=== PATIENT | female | born 1980 | race African-American/Black ===

== ENCOUNTER 2017-03-22 11:25 | Inpatient (IN) | payer OTHER ==
[2017-03-20 13:02] VITALS: BMI 35.7
--- NOTE | 2017-03-22 14:44 | HP ---
Admitting History and Physical - Admission Chief Complaint: Morbid Obesity History Source: Patient, Medical Record Limitations to Obtaining History: No Limitations - Past Medical History Cardiovascular: Yes: HTN ...LMP: 03/12/17 - Past Surgical History Past Surgical History: Yes: Appendectomy, Cholecystectomy, - Smoking History Smoking history: Never smoked Have you smoked in the past 12 months: No - Alcohol/Substance Use Hx Alcohol Use: Yes (social,rare) Home Medications - Allergies Allergies/Adverse Reactions: Allergies Allergy/AdvReac Type Severity Reaction Status Date / Time Penicillins Allergy Intermediate Rash Verified 03/22/17 12:59 - Home Medications Home Medications: Ambulatory Orders Amlodipine Besylate [Norvasc -] 10 mg PO DAILY 03/20/17 Family Disease History - Family Disease History Family History: Unremarkable Review of Systems - Review of Systems Constitutional: denies: Chills, Fever HENT: reports: No Symptoms Neck: reports: No Symptoms Cardiovascular: reports: No Symptoms. denies: Chest Pain Respiratory: denies: Cough Gastrointestinal: denies: Abdominal Pain Neurological: denies: Change in LOC Pain Intensity: 0 Physical Examination Vital Signs: Vital Signs Temperature 98.2 F 03/22/17 12:47 Pulse Rate 82 03/22/17 12:47 Respiratory Rate 18 03/22/17 12:47 Blood Pressure 137/85 03/22/17 12:47 O2 Sat by Pulse Oximetry (%) 98 03/22/17 12:48 Constitutional: Yes: Calm HENT: Yes: WNL Neck: Yes: Supple Cardiovascular: Yes: Regular Rate and Rhythm Respiratory: Yes: CTA Bilaterally Gastrointestinal: Yes: Soft, Abdomen, Obese. No: Tenderness Neurological: Yes: Alert, Oriented Problem List - Problems (1) Morbid obesity due to excess calories Code(s): E66.01 - MORBID (SEVERE) OBESITY DUE TO EXCESS CALORIES Assessment/Plan 36 female with morbid obesity For laparoscopic possible open vertical sleeve gastrectomy possible liver biopsy
[2017-03-22] MEDS ORDERED: SUCCINYLCHOLINE CHLORIDE 200 MG/10 ML VIAL ONE (16:19)
[2017-03-22] MEDS ORDERED: PROPOFOL 20 ML ONE (16:19)
[2017-03-22] MEDS ORDERED: CLINDAMYCIN PHOSPHATE 600 MG/4 ML VIAL ONE (16:35)
[2017-03-22] MEDS ORDERED: CLINDAMYCIN PHOSPHATE 900 MG/6 ML VIAL IVPB ONE (16:39)
[2017-03-22] MEDS ORDERED: ROCURONIUM BROMIDE 50 MG/5 ML VIAL ONE (16:42)
[2017-03-22] MEDS ORDERED: ePHEDrine SULFATE 50 MG/1 ML AMPULE ONE (17:10)
[2017-03-22] MEDS ORDERED: HYDROmorphone HCL/PF 1 MG/ML VIAL (FOR PYXIS CHARGING ONLY) ONE (17:52)
[2017-03-22] MEDS ORDERED: HYDROmorphone HCL CARPU-JECT 1 MG/1 ML DISP.SYRIN IVPB PRN (18:11)
[2017-03-22] MEDS ORDERED: ACETAMINOPHEN 1000 MG/100 ML VIAL (NON FORMULARY) IVPB SCH (18:15)
[2017-03-22] MEDS ORDERED: SODIUM CHLORIDE 1,000 ML IV SCH (18:15)
[2017-03-22] MEDS ORDERED: ONDANSETRON 4 MG/2 ML VIAL IVPB SCH (18:15)
[2017-03-22] MEDS ORDERED: METOCLOPRAMIDE HCL INJECTION 10 MG/2 ML VIAL IVPB SCH (18:15)
--- NOTE | 2017-03-22 18:15 | OP ---
Operative Note - Note: Operative Date: 03/22/17 Pre-Operative Diagnosis: Morbid Obesity. Hypertension Operation: Laparoscopic vertical sleeve gastrectomy Findings: No leak/obstruction Post-Operative Diagnosis: Same as Pre-op Surgeon: Vernon Potts Vessel Builder: Bubba Lozano Anesthesia: General Specimens Removed: Greater curvature of [facility] Estimated Blood Loss (mls): 30 Drains & Tubes with Location: 36 Fr Bougie Operative Report Dictated: Yes
[2017-03-22] MEDS ORDERED: ACETAMINOPHEN INJECTION 100 ML IVPB ONE (18:38)
[2017-03-22] MEDS ORDERED: FAMOTIDINE 20 MG/50 ML IVPB 50 ML IVPB ONE (18:38)
[2017-03-22] MEDS ORDERED: METOCLOPRAMIDE HCL INJECTION 10 MG/2 ML VIAL ONE (18:42)
[2017-03-22] MEDS: ACETAMINOPHEN 1000 MG/100 ML VIAL (NON FORMULARY) IVPB SCH ×2 (18:45→23:17)
[2017-03-22 18:46] LABS: MCH 28.1 pg (25.7-33.7); MCHC 32.7 g/dl (32.0-36.0); MEAN CELL VOLUME 85.9 fl (80-96); MEAN PLT VOLUME 9.6 fl (7.5-11.1); PLATELET COUNT 257 K/MM3 (134-434); RDW 14.3 % (11.6-15.6); WHITE BLOOD COUNT 13.3 K/mm3 (4.0-10.0)
[2017-03-22] MEDS: HYDROmorphone HCL CARPU-JECT 1 MG/1 ML DISP.SYRIN IVPUSH PRN ×4 (19:20→19:45)
[2017-03-22] MEDS ORDERED: HYDROmorphone HCL CARPU-JECT 2 MG/1 ML DISP.SYRIN ONE (19:37)
[2017-03-22 19:42] LABS: ALK PHOS 73 U/L (45-117); ANION GAP 6 (8-16); BILIRUBIN,TOTAL 0.4 mg/dL (0.2-1.0); CALCIUM 8.8 mg/dL (8.5-10.1); CO2 25 mmol/L (21-32); CREATININE 0.8 mg/dL (0.55-1.02); GLUCOSE,RANDOM 143 mg/dL (74-106); SGOT/AST 24 U/L (15-37); SGPT/ALT 22 U/L (12-78); TOT PROT 7.4 g/dl (6.4-8.2)
[2017-03-22] MEDS ORDERED: LACTATED RINGERS SOLUTION 1,000 ML IV SCH (19:45)
[2017-03-22] MEDS ORDERED: BUPIVACAINE HCL/PF 0.5% (5MG/ML) 10 ML VIAL ONE (19:57)
[2017-03-22] MEDS: SODIUM CHLORIDE 1,000 ML IV SCH (21:23)
[2017-03-22] MEDS: ENOXAPARIN NA (PORCINE) 40 MG/0.4 ML DISP.SYRIN SQ SCH (21:24)
[2017-03-22] MEDS: FAMOTIDINE 20 MG/50 ML IVPB 50 ML IVPB SCH (21:24)
[2017-03-22] MEDS: ONDANSETRON 4 MG/2 ML VIAL IVPB SCH (21:26)
[2017-03-22] MEDS: HYDROmorphone HCL CARPU-JECT 1 MG/1 ML DISP.SYRIN IVPB PRN (21:32)
[2017-03-22] MEDS ORDERED: FAMOTIDINE 20 MG/50 ML IVPB 50 ML IVPB SCH (22:00)
[2017-03-22] MEDS ORDERED: ENOXAPARIN NA (PORCINE) 40 MG/0.4 ML DISP.SYRIN SQ SCH (22:00)
[2017-03-22] MEDS: METOCLOPRAMIDE HCL INJECTION 10 MG/2 ML VIAL IVPB SCH (23:16)
[2017-03-23] MEDS: ONDANSETRON 4 MG/2 ML VIAL IVPB SCH ×6 (02:42→22:00)
[2017-03-23] MEDS: HYDROmorphone HCL CARPU-JECT 1 MG/1 ML DISP.SYRIN IVPB PRN (02:43)
[2017-03-23] MEDS: ACETAMINOPHEN 1000 MG/100 ML VIAL (NON FORMULARY) IVPB SCH ×2 (05:41→11:26)
[2017-03-23] MEDS: METOCLOPRAMIDE HCL INJECTION 10 MG/2 ML VIAL IVPB SCH ×3 (05:42→17:31)
[2017-03-23 05:53] LABS: MCH 28.2 pg (25.7-33.7); MEAN CELL VOLUME 85.6 fl (80-96); MEAN PLT VOLUME 9.8 fl (7.5-11.1); PLATELET COUNT 257 K/MM3 (134-434); RDW 14.1 % (11.6-15.6); WHITE BLOOD COUNT 14.8 K/mm3 (4.0-10.0)
[2017-03-23 06:20] LABS: ALBUMIN 3.8 g/dl (3.4-5.0); ALK PHOS 81 U/L (45-117); ANION GAP 12 (8-16); BILIRUBIN,TOTAL 0.6 mg/dL (0.2-1.0); CALCIUM 8.2 mg/dL (8.5-10.1); CO2 22 mmol/L (21-32); CREATININE 0.7 mg/dL (0.55-1.02); GLUCOSE,RANDOM 102 mg/dL (74-106); SGOT/AST 39 U/L (15-37); SGPT/ALT 35 U/L (12-78); TOT PROT 7.3 g/dl (6.4-8.2)
--- NOTE | 2017-03-23 08:35 | SPEC ---
DATE OF OPERATION: 03/22/2017 PREOPERATIVE DIAGNOSIS: Morbid obesity, hypertension. POSTOPERATIVE DIAGNOSIS: Morbid obesity, hypertension. PROCEDURE PERFORMED: Laparoscopic vertical sleeve gastrectomy. SURGEON: Ayan Potts M.D. SUPERINTENDENT LANDFILL OPERATIONS: Bubba Lozano M.D. SPECIMEN: Greater curvature of the stomach. ESTIMATED BLOOD LOSS: 30 mL. DRAINS: None. ANESTHESIA: GET. INDICATIONS: This is a 36-year-old female who presents to the office for weight loss options. After describing different options, she decided to proceed with a laparoscopic vertical sleeve gastrectomy. RISKS AND BENEFITS: After describing the different options for weight loss management, the patient decided to proceed with a laparoscopic, possible open, vertical sleeve gastrectomy. The patient was seen by the respective subspecialties and cleared for surgery. The risks and benefits of the procedure were explained. These included bleeding, infection, hernia, SD, DVT, PE, injury to surrounding structures including the liver, colon, bowel, spleen, esophagus, vessel injury, nerve injury, weight regain, gastric leak, staple line leak, sleeve leak, obstruction, vitamin deficiency, hair loss, and as some of the possible complications. The patient understood and signed informed consent. DESCRIPTION OF PROCEDURE: The patient was placed supine on the operating room table. The patient underwent general endotracheal intubation. A Smith catheter was inserted. The arms were brought out at 90 degrees and secured. A foot board was placed, and the legs were secured laterally with padding. The abdomen was prepped and draped in the usual sterile fashion. A timeout was performed. An incision was made in the left upper quadrant, and a Veress needle inserted. Pneumoperitoneum was established. Subsequently, the Veress needle was removed, and a 12-mm trocar was placed. The laparoscopic camera was inserted, and inspection of the abdominal cavity was performed. An incision was made in the supraumbilical region, and a 15-mm trocar placed under direct visualization. A 5-mm trocar was then placed in the right upper quadrant, and a 5-mm trocar placed below the left subcostal margin. A stab wound was made in the subxiphoid area, and a Carol clamp inserted and removed to dilate the tract. A Riana liver retractor was inserted. The post was secured at the bedside by the nursing staff. The patient was placed in steep reverse Trendelenburg position. The Riana liver retractor was used to secure the liver towards the anterior abdominal wall. The pylorus was identified and 6 cm proximal to it, the lesser sac was entered using the LigaSure device. All lateral attachments to the greater curvature of the stomach including the short gastric vessels were ligated using the LigaSure device toward the gastrosplenic and gastrophrenic ligaments. Once this was done in its entirety, it was confirmed that all tubes within the nasal or oropharyngeal cavity including a temperature probe was removed by Anesthesia. The bougie was then inserted by Anesthesia. Transection of the stomach was then begun staying adjacent to the bougie but away from the angularis. Transection of the stomach was performed near the portion of the stomach where the lesser sac was entered. Two laparoscopic Endo-AYSE black loads were used at this location. Laparoscopic Endo-AYSE purple loads were then used for the remainder of the transection until the greater curvature of the stomach was fully transected. This was done staying close to the bougie. Care was taken to stay away from the angle of His cephalad. The staple line was then inspected. Hemostasis was identified. A leak test was then performed. The stomach was clamped distally to the staple line. Irrigation solution was placed in the left upper quadrant, and air insufflated by Anesthesia into the sleeve. No leaks were identified, and no obstruction was identified. This was done throughout the entirety of the staple line. At this point, the irrigation solution was suctioned, and again hemostasis noted. The 15-mm supraumbilical trocar was then removed, and the specimen removed from the site using a sponge stick wilkins. The specimen was inspected, and a Veress needle inserted. The specimen insufflated adequately, and no leak was identified. The staple line was noted to be intact. A Nésotr-Krzysztof device was then used to temporarily close the fascia with a 0 Vicryl suture at this site. The 15-mm trocar was then reinserted, and the 12-mm trocar in the left upper quadrant removed. The fascia at this site was then closed using a Néstor Krzysztof device with a 0 Vicryl suture. Again, hemostasis was noted. The Riana liver retractor was then removed under direct visualization. Pneumoperitoneum was desufflated, and the fascial sutures were secured. Hemostasis was noted at all incision sites, and Marcaine was injected at all incision sites. All incision sites were closed using 4-0 Biosyn. Sterile dressings were applied. The patient tolerated the procedure well, and was transferred to the recovery room in stable condition with the Smith catheter intact. The patient was transferred to telemetry for further monitoring. AYAN POTTS M.D. [id number]
[2017-03-23] MEDS: SODIUM CHLORIDE 1,000 ML IV SCH ×2 (09:28→20:48)
[2017-03-23] MEDS: ENOXAPARIN NA (PORCINE) 40 MG/0.4 ML DISP.SYRIN SQ SCH ×2 (09:30→22:00)
[2017-03-23] MEDS: FAMOTIDINE 20 MG/50 ML IVPB 50 ML IVPB SCH ×2 (10:02→22:00)
[2017-03-23] MEDS ORDERED: ACETAMINOPHEN 325 MG TABLET (FP) PO PRN (10:39)
[2017-03-23] MEDS ORDERED: oxyCODONE HCL 5 MG TABLET PO PRN (10:39)
[2017-03-23] MEDS ORDERED: SODIUM CHLORIDE 1,000 ML IV SCH (10:45)
--- NOTE | 2017-03-23 12:31 | PN ---
Progress Note (short form) - Note Progress Note: POD 1 Laparoscopic vertical sleeve gastrectomy Pain controlled Mild nausea Vital Signs Period Temp Pulse Resp BP Sys/Gaytan Pulse Ox Last 24 Hr 98.2 F-98.9 F 73-82 14-20 123-139/74-91 98-100 Abd soft, dressings intact CBC,CMP WBC 14.8 K/mm3 (4.0-10.0) H 03/23/17 05:00 RBC 4.44 M/mm3 (3.60-5.2) 03/23/17 05:00 Hgb 12.5 GM/dL (10.7-15.3) 03/23/17 05:00 Hct 38.0 % (32.4-45.2) 03/23/17 05:00 MCV 85.6 fl (80-96) 03/23/17 05:00 MCH 28.2 pg (25.7-33.7) 03/23/17 05:00 MCHC 33.0 g/dl (32.0-36.0) 03/23/17 05:00 RDW 14.1 % (11.6-15.6) 03/23/17 05:00 Plt Count 257 K/MM3 (134-434) 03/23/17 05:00 MPV 9.8 fl (7.5-11.1) 03/23/17 05:00 Sodium 137 mmol/L (136-145) 03/23/17 05:00 Potassium 3.9 mmol/L (3.5-5.1) 03/23/17 05:00 Chloride 103 mmol/L (98-107) 03/23/17 05:00 Carbon Dioxide 22 mmol/L (21-32) 03/23/17 05:00 Anion Gap 12 (8-16) 03/23/17 05:00 BUN 7 mg/dL (7-18) D 03/23/17 05:00 Creatinine 0.7 mg/dL (0.55-1.02) 03/23/17 05:00 Creat Clearance w eGFR > 60 (>60) 03/23/17 05:00 Random Glucose 102 mg/dL (74-106) D 03/23/17 05:00 Calcium 8.2 mg/dL (8.5-10.1) L 03/23/17 05:00 Total Bilirubin 0.6 mg/dL (0.2-1.0) D 03/23/17 05:00 AST 39 U/L (15-37) H D 03/23/17 05:00 ALT 35 U/L (12-78) D 03/23/17 05:00 Alkaline Phosphatase 81 U/L (45-117) 03/23/17 05:00 Total Protein 7.3 g/dl (6.4-8.2) 03/23/17 05:00 Albumin 3.8 g/dl (3.4-5.0) 03/23/17 05:00 Serum , Qual Negative 03/22/17 12:20 UGI- no leak/obstruction Clears OOB D/C planning in am Problem List - Problems (1) Morbid obesity due to excess calories Code(s): E66.01 - MORBID (SEVERE) OBESITY DUE TO EXCESS CALORIES
[2017-03-24] MEDS: METOCLOPRAMIDE HCL INJECTION 10 MG/2 ML VIAL IVPB SCH ×2 (00:26→05:45)
[2017-03-24] MEDS: ONDANSETRON 4 MG/2 ML VIAL IVPB SCH ×3 (01:34→09:25)
[2017-03-24] MEDS: ENOXAPARIN NA (PORCINE) 40 MG/0.4 ML DISP.SYRIN SQ SCH (09:15)
[2017-03-24] MEDS: FAMOTIDINE 20 MG/50 ML IVPB 50 ML IVPB SCH (09:15)
[2017-03-24 11:11] VITALS: BP 140/91; PULSE 82; TEMP 98.9
--- NOTE | 2017-03-26 12:17 | PATH ---
Surgical Pathology Report Patient Name: FE MOORE [facility]. Rec. #: [id number] /Age/Gender: 1980 (Age: 36) / F Account: [id number] Location: U Taken: 03/22/2017 Received: 03/23/2017 Reported: 03/26/2017 Physicians: Vernon Potts M.D. Specimen(s) Received GREATER CURVATURE OF STOMACH Clinical History Morbid (severe) obesity, obstructive sleep apnea Final Diagnosis STOMACH, GREATER CURVATURE, SLEEVE GASTRECTOMY: PORTION OF STOMACH WITH NO PATHOLOGIC CHANGES. IMMUNOSTAIN FOR H. PYLORI IS NEGATIVE. Electronically Signed Murphy Boykin M.D. Gross Description Received in formalin, labeled "greater curvature of stomach," is a 102 gram, 14.0 x 4.0 x 3.0 cm. portion of stomach with a stapled margin of resection. The serosa is latif-villatoro with minimal attached fat. The mucosa is latif-red with normal folds. No mucosal masses are identified. Heel Sprayer First sections are submitted in one cassette. /03/23/2017 [facility]03/23/2017
== END 2017-03-24 11:21 | disposition home or self-care (01) | DRG 403 ==
LOC: JSAMEDAYSX 11:58 → EDSTATUS 15:00 → J2W 19:30
PROVIDERS: ADMIT Surgery; ATTEND Surgery
PROC: 0DB64Z3 Excision of Stomach, Percutaneous Endoscopic Approach, Vertical (ICD-10-PCS; principal; 2017-03-22 14:00)
DX: E66.01 Morbid (severe) obesity due to excess calories (principal); I10 Essential (primary) hypertension; Z88.0 Allergy status to penicillin; Z68.34 Body mass index [BMI] 34.0-34.9, adult
CPT/HCPCS: 36415; 74241-TC; 80053; 84703; 85027; 86850; 86900; 86901; 88305-TC; 94760

== ENCOUNTER 2020-08-19 04:19 | Day surgery (SDC) | payer OTHER ==
[2020-08-12 15:31] VITALS: BMI 31.9
[2020-08-19] MEDS ORDERED: PHENAZOPYRIDINE HCL 100 MG TABLET (FP) PO ONE (06:19)
[2020-08-19] MEDS ORDERED: CLINDAMYCIN 300 MG PREMIX IVPB 300 MG/50 ML BAG IVPB ONE (06:19)
[2020-08-19] MEDS ORDERED: ceFAZolin SODIUM 1 GM VIAL IVPB ONE (07:55)
[2020-08-19] MEDS ORDERED: BISACODYL 5 MG TABLET.DR (FP) PO PRN (10:08)
[2020-08-19] MEDS ORDERED: oxyCODONE HCL 5 MG TABLET PO PRN ×3 (10:08→10:24)
[2020-08-19] MEDS ORDERED: SIMETHICONE 80 MG TAB.CHEW (FP) PO PRN (10:08)
[2020-08-19] MEDS ORDERED: ONDANSETRON 4 MG/2 ML VIAL IVPUSH PRN (10:08)
[2020-08-19] MEDS ORDERED: traMADol HCL 50 MG TABLET PO PRN (10:24)
[2020-08-19] MEDS ORDERED: LACTATED RINGERS SOLUTION 1,000 ML IV SCH (10:30)
[2020-08-19] MEDS ORDERED: DOCUSATE SODIUM 100 MG CAPSULE (FP) PO PRN (10:54)
[2020-08-19] MEDS ORDERED: IBUPROFEN 800 MG/8 ML IJ IVPB PRN (10:55)
[2020-08-19] MEDS: SODIUM CHLORIDE 1,000 ML IV SCH (11:40)
[2020-08-19] MEDS: ACETAMINOPHEN 325 MG TABLET (FP) PO SCH ×2 (15:00→18:24)
[2020-08-19] MEDS: CEFAZOLIN 1 GM/D5W 1 GM/50 ML BAG IVPB SCH (17:49)
[2020-08-19 19:49] LABS: HEMATOCRIT 30.1 % (32.4-45.2); HEMOGLOBIN 9.4 GM/dL (10.7-15.3); MCHC 31.4 g/dl (32.0-36.0); MEAN CELL VOLUME 76.5 fl (80-96); MEAN PLT VOLUME 9.6 fl (7.5-11.1); PLATELET COUNT 299 K/MM3 (134-434); RBC 3.93 M/mm3 (3.60-5.2); RDW 16.4 % (11.6-15.6); WHITE BLOOD COUNT 11.8 K/mm3 (4.0-10.0)
[2020-08-19 20:08] LABS: POTASSIUM 4.1 mmol/L (3.5-5.1)
[2020-08-19 20:10] LABS: CALCIUM 8.7 mg/dL (8.5-10.1)
[2020-08-19 20:14] LABS: CREATININE 1.1 mg/dL (0.55-1.3)
[2020-08-20] MEDS: CEFAZOLIN 1 GM/D5W 1 GM/50 ML BAG IVPB SCH ×2 (02:09→09:13)
[2020-08-20] MEDS: SODIUM CHLORIDE 1,000 ML IV SCH (02:09)
[2020-08-20] MEDS: ACETAMINOPHEN 325 MG TABLET (FP) PO SCH ×4 (03:30→11:24)
[2020-08-20 05:19] VITALS: BP 137/87; PULSE 72; TEMP 98.7
[2020-08-20] MEDS ORDERED: ENOXAPARIN NA (PORCINE) 40 MG/0.4 ML DISP.SYRIN SQ SCH (10:00)
[2020-08-20 10:20] LABS: HEMATOCRIT 27.6 % (32.4-45.2); HEMOGLOBIN 9.1 GM/dL (10.7-15.3); MCH 24.8 pg (25.7-33.7); MCHC 32.9 g/dl (32.0-36.0); MEAN CELL VOLUME 75.2 fl (80-96); MEAN PLT VOLUME 9.2 fl (7.5-11.1); PLATELET COUNT 267 K/MM3 (134-434); RBC 3.68 M/mm3 (3.60-5.2); RDW 16.2 % (11.6-15.6); WHITE BLOOD COUNT 9.9 K/mm3 (4.0-10.0)
[2020-08-20 10:40] LABS: POTASSIUM 3.9 mmol/L (3.5-5.1)
[2020-08-20 10:41] LABS: CALCIUM 8.5 mg/dL (8.5-10.1)
[2020-08-20 10:42] LABS: BLOOD UREA NITROGEN 6.4 mg/dL (7-18)
[2020-08-20 10:45] LABS: CREATININE 0.8 mg/dL (0.55-1.3)
== END 2020-08-20 13:32 | disposition home or self-care (01) ==
LOC: JASUSAT 04:19 → JASU-SURG 04:19 → J3W 12:25 → J6S 14:35 → JASUSAT 08-20 13:32
PROVIDERS: ATTEND Obstetrics & Gynecology
PROC: 8E0W4CZ Robotic Assisted Procedure of Trunk Region, Percutaneous Endoscopic Approach (ICD-10-PCS; 2020-08-19)
PROC: 0UT9FZZ Resection of Uterus, Via Natural or Artificial Opening With Percutaneous Endoscopic Assistance (ICD-10-PCS; principal; 2020-08-19 07:30)
PROC: 0UT7FZZ Resection of Bilateral Fallopian Tubes, Via Natural or Artificial Opening With Percutaneous Endoscopic Assistance (ICD-10-PCS; 2020-08-19 07:30)
DX: N92.0 Excessive and frequent menstruation with regular cycle (principal); D25.1 Intramural leiomyoma of uterus; D25.0 Submucous leiomyoma of uterus; D25.2 Subserosal leiomyoma of uterus; N83.8 Other noninflammatory disorders of ovary, fallopian tube and broad ligament
CPT/HCPCS: 58554; S2900; 36415; 80048; 81025; 85027; 86850; 86900; 86901; 88302-TC; 88307-TC; 94010; 94760

== ENCOUNTER 2020-08-27 21:47 | Emergency (ER) | payer OTHER ==
[2020-08-27 22:03] VITALS: BP 113/63; PULSE 85; TEMP 97; BMI 31.9
== END 2020-08-28 | disposition home or self-care (01) ==
LOC: JER 21:47
DX: T81.89XA Other complications of procedures, not elsewhere classified, initial encounter (principal)
CPT/HCPCS: 99283-25

== ENCOUNTER 2020-09-03 12:47 | Emergency (ER) | payer OTHER ==
[2020-09-03 13:02] VITALS: BP 123/82; PULSE 87; TEMP 98.7; BMI 31.1
[2020-09-03] MEDS ORDERED: SODIUM CHLORIDE 0.9% 500 ML INFUS.BAG IV ONE (13:45)
[2020-09-03] MEDS ORDERED: FAMOTIDINE 20 MG/50 ML IVPB 20 MG/50 ML MG IVPB ONE ×2 (13:46→13:59)
[2020-09-03] MEDS ORDERED: methylPREDNISolone NA SUCC 125 MG/2 ML VIAL IVPB ONE (13:46)
[2020-09-03] MEDS ORDERED: methylPREDNISolone NA SUCC 125 MG/2 ML VIAL ONE (13:59)
== END 2020-09-03 16:17 | disposition home or self-care (01) ==
LOC: JER 12:47
PROC: 3E033GC Introduction of Other Therapeutic Substance into Peripheral Vein, Percutaneous Approach (ICD-10-PCS; principal; 2020-09-03)
DX: T78.40XA Allergy, unspecified, initial encounter (principal)
CPT/HCPCS: 99284-25

== ENCOUNTER 2021-02-19 15:55 | Emergency (ER) | payer OTHER ==
[2021-02-19 16:06] VITALS: BP 153/85; PULSE 69; TEMP 98.1; BMI 31.4
== END 2021-02-19 17:35 | disposition home or self-care (01) ==
LOC: JER 15:55
DX: R07.9 Chest pain, unspecified (principal)
CPT/HCPCS: 71046-TC-FY; 93005; 93010; 99284-25

== ENCOUNTER 2022-03-27 20:28 | Emergency (ER) | payer OTHER ==
[2022-03-27 20:51] VITALS: BP 163/99; PULSE 108; RESP 19; TEMP 98.2; BMI 23.6
[2022-03-27] MEDS ORDERED: FAMOTIDINE 20 MG/50 ML IVPB 20 MG/50 ML MG IVPB ONE (21:33)
[2022-03-27] MEDS ORDERED: MAG HYDROX/AL HYDROX/SIMETH -MYLANTA- ORAL SUSPENSION PO ONE (21:33)
[2022-03-27] MEDS ORDERED: morphine CARPU-JECT 2 MG/1 ML DISP.SYRIN IVPUSH ONE (21:33)
[2022-03-27] MEDS ORDERED: ONDANSETRON 4 MG/2 ML VIAL IVPUSH ONE (21:45)
[2022-03-27] MEDS ORDERED: SODIUM CHLORIDE 0.9% 500 ML INFUS.BAG IV ONE (21:46)
[2022-03-27] MEDS ORDERED: ONDANSETRON 4 MG/2 ML VIAL ONE (22:16)
[2022-03-27] MEDS ORDERED: FAMOTIDINE 10 MG/ML VIAL IVPB ONE (22:17)
[2022-03-27 22:54] LABS: HEMATOCRIT 40.4 % (32.4-45.2); HEMOGLOBIN 13.8 GM/dL (10.7-15.3); MCHC 34.2 g/dl (32.0-36.0); MEAN CELL VOLUME 87.7 fl (80-96); MEAN PLT VOLUME 8.8 fl (7.5-11.1); PLATELET COUNT 275 10^3/uL (134-434); RDW 13.6 % (11.6-15.6); WHITE BLOOD COUNT 7.3 K/mm3 (4.0-10.0)
[2022-03-27 23:19] LABS: CALCIUM 8.5 mg/dL (8.5-10.1)
[2022-03-27 23:20] LABS: ALBUMIN 3.7 g/dl (3.4-5.0); BLOOD UREA NITROGEN 8.6 mg/dL (7-18)
[2022-03-27 23:23] LABS: CREATININE 0.8 mg/dL (0.55-1.3)
[2022-03-27 23:24] LABS: BILIRUBIN,TOTAL 0.5 mg/dL (0.2-1); TOT PROT 7.4 g/dl (6.4-8.2)
[2022-03-27 23:36] LABS: EPI CELLS 5 /uL (0-25.1); HYALINE CASTS 0 /uL (0-3.1); URINE APPEARANCE CLEAR; URINE BACTERIA >9,000 /uL (0-1359); URINE BILIRUBIN NEGATIVE (NEGATIVE); URINE COLOR YELLOW; URINE GLUCOSE (UA) NEGATIVE (NEGATIVE); URINE KETONE NEGATIVE (NEGATIVE); URINE LEUK ESTERASE NEGATIVE (NEGATIVE); URINE NITRITE POSITIVE (NEGATIVE); URINE PROTEIN NEGATIVE (NEGATIVE); URINE RBC 30 /uL (0-23.9); URINE UROBILINOGEN 0.2 mg/dL (0.2-1.0); URINE WBC 3 /uL (0-25.8)
[2022-03-28] MEDS ORDERED: CEFTRIAXONE 1 GM in DEXTROSE 5%-WATER - 50 ML IVPB ONE (00:12)
[2022-03-28] MEDS ORDERED: MAG HYDROX/AL HYDROX/SIMETH 30 ML UNIT-DOSE CUP PO ONE (00:14)
[2022-03-28] MEDS ORDERED: MAG HYDROX/AL HYDROX/SIMETH 30 ML UNIT-DOSE CUP ONE (00:23)
[2022-03-28] MEDS ORDERED: CEFTRIAXONE 1 GM/50 ML BAG ONE (00:24)
== END 2022-03-28 01:48 | disposition home or self-care (01) ==
LOC: JER 20:28
PROC: 3E03329 Introduction of Other Anti-infective into Peripheral Vein, Percutaneous Approach (ICD-10-PCS; principal; 2022-03-27)
PROC: 3E033GC Introduction of Other Therapeutic Substance into Peripheral Vein, Percutaneous Approach (ICD-10-PCS; 2022-03-27)
PROC: 3E033NZ Introduction of Analgesics, Hypnotics, Sedatives into Peripheral Vein, Percutaneous Approach (ICD-10-PCS; 2022-03-27)
PROC: 3E033GC Introduction of Other Therapeutic Substance into Peripheral Vein, Percutaneous Approach (ICD-10-PCS; 2022-03-27)
DX: K52.9 Noninfective gastroenteritis and colitis, unspecified (principal); N39.0 Urinary tract infection, site not specified
CPT/HCPCS: 36415; 74177-TC; 80053; 81003; 83690; 84484; 85027; 87086; 87186; 93005; 93010; 99285-25

== ENCOUNTER 2022-05-03 06:46 | Emergency (ER) | payer OTHER ==
[2022-05-03 07:05] VITALS: BP 146/93; PULSE 76; RESP 18; TEMP 97.7; BMI 31.9
[2022-05-03] MEDS ORDERED: KETOROLAC TROMETHAMINE 30 MG/1 ML VIAL IM ONE (08:13)
[2022-05-03] MEDS ORDERED: KETOROLAC TROMETHAMINE 30 MG/1 ML VIAL ONE (08:46)
== END 2022-05-03 09:11 | disposition home or self-care (01) ==
LOC: JER 06:46
PROC: 3E0233Z Introduction of Anti-inflammatory into Muscle, Percutaneous Approach (ICD-10-PCS; principal; 2022-05-03)
DX: M54.32 Sciatica, left side (principal)
CPT/HCPCS: 99284-25

== ENCOUNTER 2022-07-24 07:39 | Emergency (ER) | payer OTHER ==
[2022-07-24 08:09] VITALS: TEMP 98.4; BMI 33.4
[2022-07-24] MEDS ORDERED: ALBUTEROL SO4 2.5/IPRATROPIUM 0.5 INH SOL 3 ML VIAL.NEB. NEB ONE ×2 (08:31→08:42)
[2022-07-24] MEDS ORDERED: ACETAMINOPHEN 325 MG TABLET (FP) PO ONE (10:44)
[2022-07-24 11:16] VITALS: BP 144/108; PULSE 97; RESP 18
[2022-07-24] MEDS ORDERED: ACETAMINOPHEN 325 MG TABLET (FP) ONE (11:31)
== END 2022-07-24 11:15 | disposition home or self-care (01) ==
LOC: JER 07:39
PROC: 3E0F7GC Introduction of Other Therapeutic Substance into Respiratory Tract, Via Natural or Artificial Opening (ICD-10-PCS; principal; 2022-07-24)
DX: I10 Essential (primary) hypertension (principal); J06.9 Acute upper respiratory infection, unspecified
CPT/HCPCS: 0241U-QW; 71046-TC-FY; 99284-25

== ENCOUNTER 2024-05-02 20:45 | Emergency (ER) | payer BC, OTHER ==
[2024-05-02 21:08] VITALS: BP 126/75; PULSE 111; RESP 18; TEMP 98.4; BMI 27.3
[2024-05-02] MEDS ORDERED: ACETAMINOPHEN 325 MG TABLET (FP) ONE (21:22)
[2024-05-02] MEDS ORDERED: FAMOTIDINE 20 MG TABLET ONE (21:22)
[2024-05-02] MEDS: ACETAMINOPHEN 325 MG TABLET (FP) PO ONE (21:28)
[2024-05-02] MEDS: FAMOTIDINE 20 MG TABLET PO ONE (21:28)
== END 2024-05-03 00:14 | disposition home or self-care (01) ==
LOC: JER 20:45
DX: R06.2 Wheezing (principal); R07.89 Other chest pain; R13.10 Dysphagia, unspecified; L29.9 Pruritus, unspecified; R51.9 Headache, unspecified; R00.0 Tachycardia, unspecified; R22.0 Localized swelling, mass and lump, head; R53.83 Other fatigue; R06.7 Sneezing; T78.40XA Allergy, unspecified, initial encounter; Y92.830 Public park as the place of occurrence of the external cause
CPT/HCPCS: 99283-25